=== PATIENT | female | born 1945 | race Caucasian/White ===

== ENCOUNTER 2020-12-13 09:27 | Emergency (ER) | payer MEDICARE, BC ==
[2020-12-13 09:52] VITALS: BP 150/81; PULSE 86
--- NOTE | 2020-12-13 10:06 | EDM.PDOC ---
ED HPI GENERAL MEDICAL PROBLEM - General Chief Complaint: Behavioral/Psych Stated Complaint: ANXIETY ATTACK/SHAKING Time Seen by Provider: 12/13/20 10:05 - History of Present Illness INITIAL COMMENTS - FREE TEXT/NARRATIVE: 74-year-old female presents the emergency room with worsening anxiety elevated hypertension and she is having a lot of stress. Patient's mother just and this with was in a week of the anniversar ies when other family members including her have . She is having a lot of stress associated with this. The patient noticed elevated blood pressure with systolic approximately 160 last evening. She called 911. EMS came out did an EKG and they reported to her there were some concerning findings on this and she should have this checked out so she presents today for evaluation of her anxiety elevated blood pressure and possible EKG abnormalities. At this particular time her anxiety is doing okay. Patient does state that her blood pressure is higher than it usually runs she is usually in the 120s or 130s. Treatments EVENT MANAGER: Reports: Other (see below) Other Treatments EVENT MANAGER: lorazepam 0.5 mg po 0600 - Related Data Allergies Allergy/AdvReac Type Severity Reaction Status Date / Time caffeine Allergy Cannot Verified 11/24/15 07:18 Remember meloxicam Allergy Facial Verified 12/13/20 09:40 Swelling monosodium glutamate Allergy Cannot Verified 11/29/15 13:31 Remember prednisone Allergy Cannot Verified 11/24/15 07:18 Remember sertraline HCl [From Zoloft] Allergy Cannot Verified 11/24/15 07:18 Remember Home Meds: Home Meds LORazepam [Ativan] 0.5 mg PO Q6HR PRN 11/23/15 [History] Potassium Chloride [Klor-Con 10] 30 meq PO DAILY 11/23/15 [History] Acuvit 50 1 tab PO DAILY 12/13/20 [History] Cholecalciferol (Vitamin D3) [Vitamin D] 5,000 unit PO DAILY 12/13/20 [History] Magnesium Oxide [Magnesium] 250 mg PO DAILY 12/13/20 [History] Multivit-Min/Iron/Folic/Lutein [Centrum Silver Women Tablet] 1 tab PO DAILY 12/13/20 [History] hydroCHLOROthiazide [Hydrochlorothiazide] 37.5 mg PO ASDIRECTED 12/13/20 [His tory] Past Medical History HEENT History: Reports: Allergic Rhinitis, Other (See Below) Other HEENT History: serous otitis Cardiovascular History: Reports: Hypertension, Other (See Below) Other Cardiovascular History: costo condroilus Respiratory History: Reports: None Gastrointestinal History: Reports: Chronic Constipation, Hemorrhoids Genitourinary History: Reports: None 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: Musculoskeletal History: Reports: None Neurological History: Reports: None Psychiatric History: Reports: Anxiety Endocrine/Metabolic History: Reports: None Hematologic History: Reports: None Immunologic History: Reports: None Oncologic (Cancer) History: Reports: None Dermatologic History: Reports: Other (See Below) Other Dermatologic History: neoplasm of skin, seborrheic keratoses - Infectious Disease History Infectious Disease History: Reports: Chicken Pox, Measles, Mumps, Rheumatic Fever - Past Surgical History Head Surgeries/Procedures: Reports: None HEENT Surgical History: Reports: Cataract Surgery, Tonsillectomy GI Surgical History: Reports: Appendectomy Female Surgical History: Reports: Hysterectomy, Tubal Ligation Neurological Surgical History: Reports: None Social & Family History - Family History Family Medical History: No Pertinent Family History Respiratory: Reports: COPD Oncologic: Reports: Lung - Tobacco Use Tobacco Use Status *Q: Never Tobacco User - Caffeine Use Caffeine Use: Reports: Soda, Tea - Recreational Drug Use Recreational Drug Use: No ED ROS GENERAL - Review of Systems Review Of Systems: See Below Constitutional: Reports: No Symptoms HEENT: Reports: No Symptoms Respiratory: Reports: No Symptoms Cardiovascular: Reports: Blood Pressure Problem Endocrine: Reports: No Symptoms GI/Abdominal: Reports: No Symptoms Musculoskeletal: Reports: No Symptoms Skin: Reports: No Symptoms Neurological: Reports: Dizziness Psychiatric: Reports: Anxiety ED EXAM, GENERAL - Physical Exam Exam: See Below Exam Limited By: No Limitations General Appearance: Alert, No Apparent Distress Eye Exam: Bilateral Eye: Normal Inspection, PERRL Ears: Normal External Exam, Normal Canal, Hearing Grossly Normal, Normal TMs Nose: Normal Inspection, Normal Mucosa, No Blood Throat/Mouth: Normal Inspection, Normal Lips, Normal Gums, Normal Oropharynx, Normal Voice, No Airway Compromise Head: Atraumatic, Normocephalic Neck: No: Lymphadenopathy (L), Lymphadenopathy (R) Respiratory/Chest: No Respiratory Distress, Lungs Clear, Normal Breath Sounds Cardiovascular: Regular Rate, Rhythm, No Edema, No Murmur GI/Abdominal: Normal Bowel Sounds, Soft, Non-Tender Neurological: Alert, Oriented, Normal Cognition #1 Interpretation EKG Date: 12/13/20 Rhythm: NSR Rate (Beats/Min): 57 Burns: Normal P-Wave: Present QRS: Other (Possible Q waves in leads III and aVF otherwise normal QRSs) ST-T: Normal NE/PQ Interval: First-degree AV block Comparison: NA - No Prior EKG EKG Interpretation Comments: Abnormal EKG Course - Vital Signs Last Recorded V/S: Last Vital Signs Temp 36.3 C 12/13/20 09:51 Pulse 86 12/13/20 09:51 Resp 18 12/13/20 09:51 BP 150/81 H 12/13/20 09:51 Pulse Ox 95 12/13/20 09:51 - Orders/Labs/Meds Orders: Active Orders 24 hr Category Date Time Status EKG Documentation Completion [RC] STAT Care 12/13/20 10:26 Active Labs: Laboratory Tests 12/13/20 12/13/20 12/13/20 Range/Units 10:47 10:47 10:47 WBC 6.68 (3.98-10.04) K/mm3 RBC 4.77 (3.98-5.22) M/mm3 Hgb 14.1 (11.2-15.7) gm/dl Hct 43.1 (34.1-44.9) % MCV 90.4 (79.4-94.8) fl MCH 29.6 (25.6-32.2) pg MCHC 32.7 (32.2-35.5) g/dl RDW Std Deviation 42.2 (36.4-46.3) fL Plt Count 251 (182-369) K/mm3 MPV 9.5 (9.4-12.3) fl Neut % (Auto) 75.0 H (34.0-71.1) % Lymph % (Auto) 18.4 L (19.3-51.7) % Foster % (Auto) 5.5 (4.7-12.5) % Eos % (Auto) 0.6 L (0.7-5.8) Baso % (Auto) 0.4 (0.1-1.2) % Neut # (Auto) 5.00 (1.56-6.13) K/mm3 Lymph # (Auto) 1.23 (1.18-3.74) K/mm3 Foster # (Auto) 0.37 H (0.24-0.36) K/mm3 Eos # (Auto) 0.04 (0.04-0.36) K/mm3 Baso # (Auto) 0.03 (0.01-0.08) K/mm3 Sodium 144 (136-145) mEq/L Potassium 3.4 L (3.5-5.1) mEq/L Chloride 106 (98-107) mEq/L Carbon Dioxide 27 (21-32) mEq/L Anion Gap 14.4 (5-15) BUN 16 (7-18) mg/dL Creatinine 1.0 (0.55-1.02) mg/dL Est Cr Clr Drug Dosing 37.81 mL/min Estimated GFR (MDRD) 54 (>60) mL/min BUN/Creatinine Ratio 16.0 (14-18) Glucose 102 H (70-99) mg/dL Calcium 9.8 (8.5-10.1) mg/dL Magnesium 2.3 (1.8-2.4) mg/dL Total Bilirubin 0.5 (0.2-1.0) mg/dL AST 22 (15-37) U/L ALT 21 (14-59) U/L Alkaline Phosphatase 63 (46-116) U/L Troponin I < 0.017 (0.00-0.056) ng/mL Total Protein 6.8 (6.4-8.2) g/dl Albumin 3.8 (3.4-5.0) g/dl Globulin 3.0 gm/dL Albumin/Globulin Ratio 1.3 (1-2) TSH 3rd Generation 1.137 (0.358-3.74) uIU/mL Meds: Medications Discontinued Medications Generic Name Dose Route Start Last Admin Trade Name Freq PRN Reason Stop Dose Admin Potassium Chloride 40 meq 12/13/20 13:45 Potassium Chloride 20 Meq Tab.Er PO 12/13/20 13:46 ONETIME ONE - Re-Assessments/Exams Free Text/Narrative Re-Assessment/Exam: 12/13/20 13:51 Work-up is uneventful her blood pressures have remained stable. EKG is nonacute. Discussed the findings with the patient she would like to go now. I recommended she take it easy the rest this week follow-up with her regular healthcare provider early this next week. Departure - Departure Time of Disposition: 13:54 Disposition: Home, Self-Care 01 Clinical Impression: Anxiety, Hypertension - Discharge Information Referrals: Bakari Peoples PA-C [Primary Care Provider] - Forms: ED Department Discharge Additional Instructions: Return to the emergency room with any questions problems or concerning symptoms. Take it easy the rest of this week. Follow-up in the clinic early this next week for recheck your blood pressure. Use your anxiety medication as advised to in the past. Do some research on your next vacation next year. Sepsis Event Note (ED) - Evaluation Sepsis Screening Result: No Definite Risk - Focused Exam Vital Signs: Vital Signs Temp Pulse Resp BP Pulse Ox 12/13/20 09:51 36.3 C 86 18 150/81 H 95 - My Orders Last 24 Hours: My Active Orders 12/13/20 10:26 EKG Documentation Completion [RC] STAT - Assessment/Plan Last 24 Hours: My Active Orders 12/13/20 10:26 EKG Documentation Completion [RC] STAT
[2020-12-13] MEDS ORDERED: Potassium Chloride 20 MEQ Tab.ER PO ONE (13:45)
== END 2020-12-13 14:04 | disposition home or self-care (01) ==
LOC: JD.ED 09:27
DX: F41.9 Anxiety disorder, unspecified (principal); I10 Essential (primary) hypertension; I44.0 Atrioventricular block, first degree; Z88.8 Allergy status to other drugs, medicaments and biological substances; Z91.018 Allergy to other foods; Z79.899 Other long term (current) drug therapy
CPT/HCPCS: 36415; 80053; 83735; 84443; 84484; 85025; 93005; 99283; A9270; 93010